=== PATIENT | male | born 2000 | race Caucasian/White ===

== ENCOUNTER 2022-07-24 05:32 | Emergency (ER) | payer OTHER ==
[~2022-07-24] VITALS: Ht 172.7 cm; Wt 104.5 kg
[2022-07-24 05:40] VITALS: TEMP 97.5
[2022-07-24 06:20] LABS: COLLECTION METHOD CLEAN CATCH
[2022-07-24 06:35] LABS: URINE APPEARANCE Clear (CLEAR/HAZY); URINE BLOOD 1+ (NEGATIVE); URINE COLOR Straw (YELLOW); URINE GLUCOSE Negative (NEGATIVE); URINE KETONE Negative (NEGATIVE); URINE NITRATE Negative (NEGATIVE); URINE PROTEIN(semi-quant) TRACE (NEGATIVE); URINE UROBILINOGEN 0.2 E.U/dL (0.2-1.0)
[2022-07-24 06:36] LABS: MUCOUS Present (NOT PRESENT); SQUAMOUS EPITHELIAL None Seen /hpf (0-10); URINE BACTERIA None Seen /hpf (NONE SEEN)
[2022-07-24 08:32] VITALS: BP 111/62; PULSE 86
== END 2022-07-24 08:32 | disposition home or self-care (01) ==
LOC: COL.ER 05:32
PROVIDERS: Family Medicine
DX: R33.9 Retention of urine, unspecified (principal); Z28.310 Unvaccinated for COVID-19